=== PATIENT | female | born 1990 | race Caucasian/White ===

== ENCOUNTER 2022-02-06 03:08 | Emergency (ER) | payer OTHER ==
[~2022-02-06 03:08] MED LIST: CYCLOBENZAPRINE10 MG PO; PREDNISONE 20MG20 MG PO
[2022-02-06 03:50] LABS: BILIRUBIN NEGATIVE (NEGATIVE); BLOOD 3+ Ery/uL (NEGATIVE); CLARITY CLEAR (CLEAR); COLOR YELLOW (YELLOW); GLUCOSE (U) NORMAL (NORMAL); LEUKOCYTES 2+ Leu/uL (NEGATIVE); NITRITE NEGATIVE (NEGATIVE); PROTEIN 2+ mg/dL (NEGATIVE); SPECIFIC GRAVITY 1.025 (1.001-1.030); pH 6.5 (5.0-9.0)
[2022-02-06 04:00] LABS: URINARY RBC TNTC; URINARY WBC TNTC
[2022-02-06] MEDS ORDERED: BACTRIM DS TAB1 EACH PO (04:55)
[2022-02-06] MEDS ORDERED: METRONIDAZOLE500 MG PO (04:55)
== END 2022-02-06 05:30 | disposition home or self-care (01) ==
LOC: FER 03:08
PROVIDERS: Emergency Medicine
DX: N39.0 Urinary tract infection, site not specified (principal); N76.0 Acute vaginitis; F17.200 Nicotine dependence, unspecified, uncomplicated; Z28.310 Unvaccinated for COVID-19
CPT/HCPCS: 81001; 87088; 87210; 99283